=== PATIENT | female | born 1980 | race African-American/Black ===

== ENCOUNTER 2018-06-25 04:06 | Emergency (ER) | payer OTHER ==
[2018-06-25 04:31] LABS: URINE PH (Dip) POC 8.5 (5.0-8.5)
[2018-06-25 04:31] LABS: URINE BLOOD (Dip) POC 2+ (NEGATIVE); URINE GLUCOSE (Dip) POC Negative (NEGATIVE); URINE KETONES (Dip) POC Trace (NEGATIVE); URINE LEUKOCYTE EST (Dip) POC Trace (NEGATIVE); URINE NITRITE (Dip) POC Negative (NEGATIVE); URINE TOTAL PROTEIN POC 1+ (NEGATIVE)
[2018-06-25] MEDS: morphine 4 MG/ML VIAL IV (04:35)
[2018-06-25] MEDS: ONDANSETRON 4 MG INJ IV (04:35)
[2018-06-25] MEDS: METOCLOPRAMIDE 10 MG INJ IV (04:35)
[2018-06-25] MEDS: DIPHENHYDRAMINE 50 MG INJ IV (04:35)
[2018-06-25] MEDS: SOD CHLORIDE 0.9% 1,000 ML IV (04:35)
[2018-06-25 04:50] LABS: ADD MAN DIFF? NO
[2018-06-25 04:52] LABS: WHITE BLOOD COUNT 14.9 10^3/ul (4.8-10.8)
[2018-06-25 04:52] LABS: BASOPHILS % 0.3 % (0.0-2.0); EOSINOPHILS % 0.3 % (0.0-7.0); HEMATOCRIT 43.5 % (37.0-47.0); HEMOGLOBIN 14.6 g/dl (12.0-16.0); LYMPHOCYTES # 2.6 10^3/ul (0.8-2.9); LYMPHOCYTES % 17.2 % (15.0-51.0); MEAN CORPUSCULAR HEMOGLOBIN 30.2 pg (29.0-33.0); MEAN CORPUSCULAR HGB CONC 33.6 g/dl (32.0-37.0); MEAN CORPUSCULAR VOLUME 90.1 fl (82.0-101.0); MEAN PLATELET VOLUME 10.3 fl (7.4-10.4); MONOCYTE # 0.8 10^3/ul (0.3-0.9); MONOCYTES % 5.2 % (0.0-11.0); NEUTROPHIL # 11.4 10^3/ul (1.6-7.5); NEUTROPHILS % 76.7 % (39.0-77.0); PLATELET COUNT 238 10^3/UL (140-415); RED BLOOD COUNT 4.83 10^6/ul (4.20-5.40); RED CELL DISTRIBUTION WIDTH 13.2 % (11.5-14.5)
[2018-06-25 05:11] LABS: ANION GAP 14 (8-16); BLOOD UREA NITROGEN 9 mg/dl (7-20); CALCIUM 9.4 mg/dl (8.4-10.2); CARBON DIOXIDE 25 mmol/L (21-31); CHLORIDE 106 mmol/L (97-110); CREATININE 0.66 mg/dl (0.44-1.00); GLUCOSE 115 mg/dl (70-220); INR 0.93; POTASSIUM 3.2 mmol/L (3.5-5.1); PROTIME 12.6 Sec (11.9-14.9); SODIUM 142 mmol/L (135-144)
[2018-06-25 05:23] LABS: TROPONIN-I < 0.012 ng/ml (0.000-0.120)
[2018-06-25] MEDS: DIAZEPAM 5 MG/ML SYG IV (05:53)
[2018-06-25] MEDS: HYDROmorphONE 1 MG/ML SYG IV (05:53)
== END 2018-06-25 06:45 | disposition home or self-care (01) ==
LOC: E/R 04:06
DX: R51 Headache (principal); R07.9 Chest pain, unspecified
CPT/HCPCS: 36415; 70450; 71045; 80048; 81003; 81025; 84484; 85025; 85610; 85730; 93005; 96374; 96375; 99285-25